=== PATIENT | female | born 1980 | race Caucasian/White ===

== ENCOUNTER 2020-11-10 06:57 | Outpatient (NON) | payer OTHER, SELFPAY ==
[2020-11-10 11:14] LABS: Influenza Control Positive
[2020-11-10 22:42] LABS: SARS-CoV-2 RNA PCR Positive
== END 2020-11-10 06:58 ==
PROVIDERS: PCP Family Medicine; Visit Provider Physician Assistant
DX: U07.1 COVID-19 (principal)
CPT/HCPCS: 87635; 87804; C9803; U0003

== ENCOUNTER 2021-10-20 07:29 | Outpatient (CLI) | payer OTHER, SELFPAY ==
--- NOTE | 2021-10-20 07:34 | ECHO_ITS ---
Patient Info Name: Francy Wilkinson Age: 41 years : 1980 Gender: Female Ht: 64 in Wt: 172 lbs BSA: 1.90 m2 HR: 63 bpm Heart Rhythm: Sinus Rhythm Technical Quality: Fair Exam Date: 10/20/2021 8:13 AM Exam Location: [facility] Patient Status: Outpatient Admit Date: 10/20/2021 Staff Ordering Physician: Aniyah Jones PAC Water Meter Reader: JAMES CHOW Attending Provider: Aniyah Jones PAC Referring Physician: Karen QUEZADA; Exam Type: CA echo doppler color flow Study Info Indications R01.1 - Cardiac murmur, unspecified Complete two-dimensional, color flow and Doppler transthoracic echocardiogram is performed. Summary 1. Complete two-dimensional, color flow and Doppler transthoracic echocardiogram is performed. 2. Left ventricular chamber dimension is normal. 3. Left ventricular systolic function is normal, estimated at 60-65%. 4. The left ventricular diastolic function is abnormal. 5. E/e' 11 is mildly elevated. 6. Left atrial chamber dimension is mildly enlarged. 7. There is trace mitral valve regurgitation. 8. No pulmonary hypertension, estimated pulmonary arterial systolic pressure is 31 mmHg. Left Ventricle E/e' 11 is mildly elevated. Left ventricular chamber dimension is normal. Left ventricular systolic function is normal, estimated at 60-65%. The left ventricular diastolic function is abnormal. Right Ventricle Right ventricular chamber dimension is normal. Right ventricular systolic function is normal. Left Atria Left atrial chamber dimension is mildly enlarged. Right Atria Right atrial chamber dimension is normal. Aortic Valve The aortic valve is trileaflet. There is no aortic valve stenosis. There is no aortic valve regurgitation. Pulmonic Valve There is no pulmonic regurgitation. Mitral Valve There is no mitral valve stenosis. There is trace mitral valve regurgitation. Tricuspid Valve There is no tricuspid valve regurgitation. No pulmonary hypertension, estimated pulmonary arterial systolic pressure is 31 mmHg. Pericardium/Pleural There is no pericardial effusion. Inferior Vena Cava Normal inferior vena cava with >50% collapse upon inspiration consistent with normal right atrial pressure, 5 mmHg. Aorta The aortic root size at the sinus of Valsalva is normal. Left Ventricular Outflow Tract Name Value Normal LVOT 2D LVOT Diameter 1.8 cm LVOT Doppler LVOT Peak Gradient 5 mmHg LVOT Mean Gradient 2 mmHg LVOT VTI 25 cm LVOT VTI/AV VTI Ratio 0.7 LVOT Stroke Volume 62 ml LVOT CO 3.4 l/min LVOT CI 1.8 l/min/m2 Pulmonic Valve Name Value Normal PV Doppler PV Peak Gradient
== END 2021-10-20 07:30 | disposition home or self-care (01) ==
LOC: ANHCARD 07:30
PROVIDERS: PCP Family Medicine; Visit Provider Physician Assistant Medical
DX: R01.1 Cardiac murmur, unspecified (principal); I51.7 Cardiomegaly
CPT/HCPCS: 93306

== ENCOUNTER 2025-10-01 01:07 | Day surgery (SDC) | payer BC, SELFPAY ==
[2025-09-25 14:40] VITALS: BMI 29.2
--- NOTE | 2025-09-30 09:05 | SUR.PREOP ---
Pt moved up to earlier in the day due to a last minute cancellation. Reviewed change in prep times with pt and answered pt's questions. Pt planning on arriving at 730 for a 9am procedure.
--- NOTE | 2025-10-01 07:07 | P.PNAN_ITS ---
Anes - Initial Pre Proc Eval Procedure: Operation Date: 10/01/25 09:00 Proposed Procedures p Screening Colonoscopy - Trevor Dunlap MD Date/Time: 10/01/25 07:07 Surgeon: Trevor Dunlap MD Pre Op Diagnosis: Screening Patient Data Age: 45 Gender: F Height: 1.63 m Weight: 77.2 kg Allergies Allergy/AdvReac Type Severity Reaction Status Date / Time Penicillins Allergy Unknown Rash Verified 10/01/25 07:43 Home Medications ?Medication ?Instructions ?Recorded ?Confirmed ?Type albuterol sulfate 90 mcg/actuation 1 inh inhalation Q4 -6H PRN 10/22/24 09/25/25 Rx breath activated powder inhaler shortness of breath or wheezing #1 ea fluticasone propionate 50 1 spray intranasal BID 10/2210/01/25 History mcg/actuation nasal spray,suspension (Flonase Allergy Relief) tirzepatide 2.5 mg/0.5 mL 2.5 mg (0.5 mL) subcut WEEKL Y #2 mL 06/23/25 10/01/25 Rx subcutaneous pen injector (Mounjaro) Patient hx anesthesia problems: none Family hx anesthesia problems: none Results Review: All pre-operative results and documents have been reviewed as part of the pre- operative evaluation. FORMERLY [facility], 1928–1983 Past Medical History Medical History BMI 29.0-29.9,adult BMI 30.0-30.9,adult Closed displaced oblique fracture of shaft of right fibula Thrombosed external hemorrhoid Family History Family History Mother Affective bipolar disorder Father Malignant neoplasm of prostate Social History Social History Smoking status: Never smoker Alcohol intake: current Substance use: never Lack of Transportation: No Lack of Food: Never True Current Housing: I Have Housing Concerned About Future Housing: No Difficulty Paying Gas/Electric Bills: No Difficulty Paying for Meds: No Currently Unemployed: No Education: Bachelor's Degree Difficulty w/ Childcare or Family Care: No Living arrangements: with family Occupation/Education: occupation Gender identity (if verbalized by the patient): Female Sexual Orientation (if Verbalized by the Patient): Straight or Heterosexual Anes - Eval Final PreProcedure Day of Procedure 10/01/25 07:07 Patient weight: obese Heart: regular rate and rhythm Lungs: clear to auscultation Airway: Mallampati scale class II Neurological: alert and oriented Last oral intake: >/= 8 hours ASA classification: I Emergent: no Anesthetic plan: proceed Anesthesia type and monitoring: general GIVS and standard monitoring Results Review: All pre-operative results and documents have been reviewed as part of the pre- operative evaluation. Informed Consent: The patient's anesthetic plan and its attendant risks and benefits were discussed with the patient/family/POA. Questions were solicited and answers provided to the satisfaction of the patient/family/POA.
[2025-10-01 07:45] VITALS: BP 104/67; PULSE 68; RESP 18; TEMP 36.6; O2SAT 98; BMI 29.9
[2025-10-01] MEDS: LACTATED RINGERS 1,000 ML 150 ML IV CONT (07:50)
--- NOTE | 2025-10-01 09:04 | PM.IMHP ---
H&P: HPI History of Present Illness Date/Time: 10/01/25 09:04 Chief Complaint: Screening colonoscopy Narrative: This is the patient's first colonoscopy. There are no GI symptoms and there is no family history of colorectal cancer. Review of Systems Review of Systems: All systems reviewed & are unremarkable except as noted in HPI and below PMFSH Past Medical History Medical History BMI 29.0-29.9,adult BMI 30.0-30.9,adult Closed displaced oblique fracture of shaft of right fibula Thrombosed external hemorrhoid Family History Family History Mother Affective bipolar disorder Father Malignant neoplasm of prostate Social History Social History Smoking status: Never smoker Alcohol intake: current Substance use: never Lack of Transportation: No Lack of Food: Never True Current Housing: I Have Housing Concerned About Future Housing: No Difficulty Paying Gas/Electric Bills: No Difficulty Paying for Meds: No Currently Unemployed: No Education: Bachelor's Degree Difficulty w/ Childcare or Family Care: No Living arrangements: with family Occupation/Education: occupation Gender identity (if verbalized by the patient): Female Sexual Orientation (if Verbalized by the Patient): Straight or Heterosexual Meds Home Medications and Allergies Home Medications ?Medication ?Instructions ?Recorded ?Confirmed ?Type albuterol sulfate 90 mcg/actuation 1 inh inhalation Q4-6H PRN 10/22/24 09/25/25 Rx breath activated powder inhaler shortness of breath or wheezing #1 ea fluticasone propionate 50 1 spray intranasal BID 10/22/24 10/01/25 History mcg/actuation nasal spray,suspension (Flonase Allergy Relief) tirzepatide 2.5 mg/0.5 mL 2.5 mg (0.5 mL) subcut WEEKLY #2 mL 06/23/25 10/01/25 Rx subcutaneous pen injector (Binhunnikita) Allergies Allergy/AdvReac Type Severity Reaction Status Date / Time Penicillins Allergy Unknown Rash Verified 10/01/25 07:43 Vital Signs Vital Signs - 24 hr 10/01/25 07:45 Temperature 98 F Pulse Rate 68 Respiratory Rate 18 Blood Pressure 104/67 Pulse Oximetry 98 Oxygen Delivery Room Air Exam Const: General: cooperative and healthy appearing Resp: Effort & Inspection: normal respiratory effort and able to speak in complete sentences Auscultation: clear to auscultation bilaterally Cardio: Rate: regular rate Rhythm: regular rhythm GI: Inspection: normal to inspection GI Palp: No No hepatosplenomegaly present Auscultation: normal bowel sounds Rectal Exam: deferred Skin: General skin exam: normal color Psych: Appearance: grossly normal Mental Status: mental status grossly normal Assessment and Plan Assessment and plan (1) Screening for colon cancer: Code(s): Z12.11 - Encounter for screening for malignant neoplasm of colon Status: Acute Assessment and Plan: The patient is deemed a good candidate for the procedure. Consent signed. Will proceed.
[2025-10-01 09:35] VITALS: BP 100/60; PULSE 70; RESP 20; O2SAT 98
[2025-10-01 09:45] VITALS: BP 101/59; PULSE 65; RESP 18; O2SAT 99
[2025-10-01 09:55] VITALS: BP 109/72; PULSE 66; RESP 18; O2SAT 100
== END 2025-10-01 10:06 | disposition home or self-care (01) ==
PROVIDERS: PCP Family Medicine; Referring Provider Physician Assistant Medical; Visit Provider Internal Medicine Gastroenterology
PROC: 0DJD8ZZ Inspection of Lower Intestinal Tract, Via Natural or Artificial Opening Endoscopic (ICD-10-PCS; CPT 45378; principal; 2025-10-01 09:00)
DX: Z12.11 Encounter for screening for malignant neoplasm of colon (principal); E66.9 Obesity, unspecified; Z68.30 Body mass index [BMI] 30.0-30.9, adult; Z79.51 Long term (current) use of inhaled steroids; Z79.85 Long-term (current) use of injectable non-insulin antidiabetic drugs; Z80.42 Family history of malignant neoplasm of prostate
CPT/HCPCS: 45378; J2704; J7120